=== PATIENT | female | born 1990 | race Caucasian/White ===

== ENCOUNTER 2017-02-25 18:09 | Emergency (ER) | payer OTHER ==
[2017-02-25 19:07] VITALS: BP 136/83
--- NOTE | 2017-03-11 18:14 | UC ---
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 - History of Current Complaint Chief Complaint: UCBackPain Stated Complaint: LOWER BACK PAIN Time Seen by Provider: 02/25/17 18:57 Hx Obtained From: Patient Hx Last Menstrual Period: 02/03/17 ?: No Onset/Duration: Gradual Onset, Lasting Days - 2, Still Present Timing: Constant Severity Initially: Moderate Severity Currently: Moderate Pain Intensity: 6 Pain Scale Used: 0-10 Numeric Back Pain: Is Discrete @ - low back pain radiating down right leg Character: Spasmodic, Stiffness Aggravating Factor(s): Movement, Lifting Alleviating Factor(s): Nothing Associated Signs And Symptoms: Positive: Negative Related History: Occupational Injury, Previous Back Injury - Allergies/Home Medications Allergies/Adverse Reactions: Allergies Allergy/AdvReac Type Severity Reaction Status Date / Time Ciprofloxacin [From Cipro] Allergy Intermediate Hives Verified 02/25/17 18:59 Amoxicillin [From Augmentin] Allergy Rash Verified 02/25/17 18:59 Cefaclor [From Ceclor] Allergy Rash Verified 02/25/17 18:59 Cephalosporins Allergy Hives Verified 02/25/17 18:59 Clavulanic Acid Allergy Rash Verified 02/25/17 18:59 [From Augmentin] penicillin, amoxicillin Allergy Rash Uncoded 02/25/17 18:59 seasonal allergies Allergy Congestion Uncoded 02/25/17 18:59 PMH/Surg Hx/FS Hx/Imm Hx Previously Healthy: Yes Respiratory History: Asthma - Surgical History Surgical History: Yes Surgery Procedure, Year, and Place: cholecystectomy 2013, childbirth . D&CX2 - Family History Known Family History: Positive: None, Cardiac Disease, Hypertension - Social History Occupation: Employed Full-time Lives: With Family Alcohol Use: Occasionally Substance Use Type: None Smoking Status (MU): Former Smoker Type: Cigarettes, eCigarettes Amount Used/How Often: 1/2 cigarette past 2 days Have You Smoked in the Last Year: Yes - Immunization History Most Recent Influenza Vaccination: 2016 Review of Systems Constitutional: Negative Skin: Negative Eyes: Negative ENT: Negative Respiratory: Negative Cardiovascular: Negative Gastrointestinal: Negative Genitourinary: Negative Motor: Negative Neurovascular: Negative Musculoskeletal: Arthralgia - low back Neurological: Negative Psychological: Negative Is Patient Immunocompromised?: No All Other Systems Reviewed And Are Negative: Yes Physical Exam Triage Information Reviewed: Yes Appearance: Well-Appearing, No Pain Distress, Obese Vital Signs: Initial Vital Signs Temp 97.7 F 02/25/17 19:00 Pulse 80 02/25/17 19:00 Resp 16 02/25/17 19:00 BP 136/83 02/25/17 19:00 Pulse Ox 100 02/25/17 19:00 Vital Signs Reviewed: Yes Eye Exam: Normal Eyes: Positive: Conjunctiva Clear ENT Exam: Normal ENT: Positive: Normal ENT inspection, Hearing grossly normal, Pharynx normal, TMs normal. Negative: Nasal congestion, Trismus, Muffled voice, Hoarse voice, Sinus tenderness Dental Exam: Normal Neck exam: Normal Neck: Positive: Supple, Nontender, No Lymphadenopathy Respiratory Exam: Normal Respiratory: Positive: Chest non-tender, Lungs clear, Normal breath sounds, No respiratory distress, No accessory muscle use Cardiovascular Exam: Normal Cardiovascular: Positive: RRR, No Murmur, Pulses Normal, Brisk Capillary Refill Musculoskeletal Exam: Normal Musculoskeletal: Positive: Strength Intact, ROM Intact, No Edema Neurological Exam: Normal Neurological: Positive: Alert, Muscle Tone Normal Psychological Exam: Normal Skin Exam: Normal Back Pain Course/Dx - Course Course Of Treatment: low back exercises, core strenghtening exercise, follow with pcp - Differential Dx/Diagnosis Provider Diagnoses: low back pain, dehydration, sciatica Discharge - Discharge Plan Condition: Stable Disposition: HOME Prescriptions: Cyclobenzaprine TAB* [Flexeril 10 MG TAB*] 10 mg PO TID PRN #15 tab PRN Reason: pain Methylprednisolone [Medrol Dosepak 4 MG*] 1 leslye PO .SEE LESLYE INSTRUCTION #1 leslye Patient Education Materials: Sciatica (ED), Core Strengthening Exercises (GEN) , Lower Back Exercises (ED) Referrals: JUAN R Evans [Primary Care Provider] - 1 Week
== END 2017-02-25 20:02 | disposition home or self-care (01) ==
LOC: UCCORT 18:09
DX: M54.41 Lumbago with sciatica, right side (principal); E86.0 Dehydration; R42 Dizziness and giddiness; Z32.02 Encounter for pregnancy test, result negative; J45.909 Unspecified asthma, uncomplicated; E66.9 Obesity, unspecified; Z90.49 Acquired absence of other specified parts of digestive tract; Z88.1 Allergy status to other antibiotic agents; Z88.0 Allergy status to penicillin; Z87.891 Personal history of nicotine dependence
CPT/HCPCS: 81003; 84702; 99212; G0463

== ENCOUNTER 2018-10-16 08:42 | Emergency (ER) | payer OTHER ==
[2018-10-16 09:10] VITALS: BP 139/78
--- NOTE | 2018-10-16 09:27 | UC ---
Ear Complaint HPI - HPI Summary HPI Summary: 28-year-old woman comes in with a chief complaint of right ear pain. Started 2 days ago. Has not been swimming. Pain is worse when she pushes her pills on her ear. She does have some sore throat on the right side. No fevers or chills. No shortness breath. Patient is 35 weeks . - History of Current Complaint Chief Complaint: UCEar Stated Complaint: ST,RT EAR PAIN Time Seen by Provider: 10/16/18 09:17 Hx Last Menstrual Period: 02/13/18 Pain Intensity: 5 - Allergies/Home Medications Allergies/Adverse Reactions: Allergies Allergy/AdvReac Type Severity Reaction Status Date / Time amoxicillin Allergy Rash Verified 10/16/18 09:10 cefaclor [From Ceclor] Allergy Rash Verified 10/16/18 09:10 Cephalosporins Allergy Hives Verified 10/16/18 09:10 ciprofloxacin Allergy Hives Verified 10/16/18 09:10 clavulanic acid Allergy Rash Verified 10/16/18 09:10 [From Augmentin] penicillin, amoxicillin Allergy Rash Uncoded 10/16/18 09:10 seasonal allergies Allergy Congestion Uncoded 10/16/18 09:10 PMH/Surg Hx/FS Hx/Imm Hx Previously Healthy: Yes - 35 WEEKS - Surgical History Surgical History: Yes Surgery Procedure, Year, and Place: cholecystectomy 2013, childbirth . D&CX2 - Family History Known Family History: Positive: None, Cardiac Disease, Hypertension - Social History Alcohol Use: None Substance Use Type: None Smoking Status (MU): Former Smoker Type: Cigarettes, eCigarettes Amount Used/How Often: 1/2 cigarette past 2 days Have You Smoked in the Last Year: Yes When Did the Patient Quit Smoking/Using Tobacco: JANUARY 2018 - Immunization History Most Recent Influenza Vaccination: 2017 Review of Systems All Other Systems Reviewed And Are Negative: Yes Constitutional: Positive: Negative Skin: Positive: Negative Eyes: Positive: Negative ENT: Positive: Sore Throat, Ear Ache, Nasal Discharge Respiratory: Positive: Negative Cardiovascular: Positive: Negative Gastrointestinal: Positive: Negative Motor: Positive: Negative Neurovascular: Positive: Negative Musculoskeletal: Positive: Negative Neurological: Positive: Negative Psychological: Positive: Negative Is Patient Immunocompromised?: No Physical Exam Triage Information Reviewed: Yes Appearance: Well-Appearing, No Pain Distress, Well-Nourished Vital Signs: Initial Vital Signs Temp 97 F 10/16/18 09:04 Pulse 95 10/16/18 09:04 Resp 18 10/16/18 09:04 BP 139/78 10/16/18 09:04 Pulse Ox 99 10/16/18 09:04 Vital Signs Reviewed: Yes Eye Exam: Normal Eyes: Positive: Conjunctiva Clear ENT: Positive: Pharynx normal, TMs normal, Other - There is debris in the right ear canal and the right tragus is tender to palpation in the right pinna is tender to traction. Neck: Positive: Supple Respiratory: Positive: Lungs clear, Normal breath sounds, No respiratory distress Cardiovascular: Positive: RRR Abdomen Description: Positive: Other: - GRAVID Musculoskeletal Exam: Normal Musculoskeletal: Positive: Strength Intact, ROM Intact Neurological: Positive: Alert Psychological: Positive: Normal Response To Family, Age Appropriate Behavior Skin Exam: Normal Ear Complaint Course/Dx - Differential Dx/Diagnosis Provider Diagnosis: Right otitis externa Discharge - Sign-Out/Discharge Documenting (check all that apply): Patient Departure All imaging exams completed and their final reports reviewed: No Studies - Discharge Plan Condition: Stable Disposition: HOME Prescriptions: Neomyc/Polym/HC 1% OTIC SUSP* [Cortisporin Otic Susp 1%*] 4 drop LEFT EAR QID # 1 btl Patient Education Materials: Otitis Externa (ED) Referrals: Aarti Carpenter NP [Primary Care Provider] - Additional Instructions: FOLLOW UP WITH YOUR DOCTOR IF NOT COMPLETELY IMPROVED. GET REEVALUATED SOONER IF WORSE OR ANY QUESTIONS OR CONCERNS. - Billing Disposition and Condition Condition: STABLE Disposition: Home
== END 2018-10-16 09:37 | disposition home or self-care (01) ==
LOC: UCCORT 08:42
DX: O26.893 Other specified pregnancy related conditions, third trimester (principal); Z3A.49 Greater than 42 weeks gestation of pregnancy; H60.91 Unspecified otitis externa, right ear; Z88.0 Allergy status to penicillin; Z88.1 Allergy status to other antibiotic agents; Z87.891 Personal history of nicotine dependence
CPT/HCPCS: 99212; G0463